=== PATIENT | male | born 1960 | race American Indian/Alaskan Native ===

== ENCOUNTER 2017-04-23 10:25 | Day surgery (SDC) | payer MEDICAID ==
[2017-04-23] MEDS ORDERED: NACL 0.9% 1000 ML 1,000 ML IV SCH (12:00)
[2017-04-23] MEDS ORDERED: WATER FOR IRRIG STERILE IR ONE (12:46)
[2017-04-23] MEDS ORDERED: DIPRIVAN 10 MG/ML IV ONE (12:49)
--- NOTE | 2017-04-23 12:59 | Anesthesia Consultation ---
Anesthesia Consult and Med Hx Date of service: 04/23/17 - Airway Anesthetic Teeth Evaluation: Poor (lots broken), Edentulous (upper) ROM Head & Neck: Adequate Mental/Hyoid Distance: Adequate Mallampati Class: Class II Intubation Access Assessment: Probably Good - Pulmonary Exam CTA: Yes - Cardiac Exam Cardiac Exam: RRR - Pre-Operative Health Status ASA Pre-Surgery Classification: ASA3 Proposed Anesthetic Plan: MAC - Pulmonary Hx Smoking: Yes (09/03 PPD) - Cardiovascular System Hx Hypertension: Yes - Central Nervous System Hx Seizures: Yes - Gastrointestinal Hx Gastroesophageal Reflux Disease: Yes (on meds)
--- NOTE | 2017-04-23 13:00 | Anesthesia Day of Surgery ---
Anesthesia Day of Surgery - Day of Surgery Patient Examined: Yes Patient H&P Reviewed: Yes Patient is NPO: Yes
[2017-04-23] MEDS ORDERED: WATER FOR IRRIG STERILE ONE (13:09)
[2017-04-23] MEDS ORDERED: INFANTS' GAS RELIEF PO ONE (13:09)
--- NOTE | 2017-04-23 13:29 | Post Anesthesia Evaluation ---
- Post Anesthesia Evaluation Patient Participated: Yes Airway Patent: Yes Stable Respiratory Function: Yes Nausea/Vomiting: No Temp > 96.8F: Yes Pain Manageable: Yes Adequeate Hydration: Yes Anesthesia Complications: No
[2017-04-23 13:44] VITALS: BP 117/84
--- NOTE | 2017-04-28 13:30 | Operative Report ---
Operative Report Operative Report: Date of procedure: 04/23/2017 Procedure: Colonoscopy Attending physician: Clay Kirkland MD Body Specialist: Clay Kirkland MD Indication: Patient is a 56-year-old male who presents with a past history of colon polyps. A colonoscopy is done to assess patient so that treatment may be directed based on the findings. Consent: Informed consent was obtained after advising the patient and family regarding nature of this procedure, its indications, potential benefits as well as possible complications including but not limited to bleeding perforation and adverse reaction to medication, infection as well as other cardiopulmonary complications. An informed written and verbal consent was then obtained after due opportunity was provided for questions and answers. Monitoring: Patient was monitored continuously with pulse oximetry and electrocardiographic recordings as well as blood pressure recordings. Vital signs remained stable throughout this procedure with no untoward events. Preoperative assessment: Patient was assessed immediately prior to this procedure for capacity to tolerate monitored anesthesia care and moderate sedation as well as general anesthesia. Patient's ASA classification is 2, Mallampati class is 2, Hyomental distance is 3. Instrument: [employer] video colonoscope Medications: Propofol given intravenously in divided doses. For details please refer to anesthesia records. Description of procedure: Patient was placed in the left lateral decubitus position after achieving sedation, a digital rectal examination was performed following which the colonoscope was introduced into the anal verge and advanced to the cecum which was identified by the cecal valve, the appendiceal orifice, as well as by the cecal strap and direct transillumination. The colonoscope was subsequently withdrawn with careful inspection of all mucosal surfaces. Patient tolerated this procedure well and was subsequently taken to the recovery room. The following findings were noted. Findings: Patient has substantial retained stool in various sections of the colon. There were no gross abnormalities seen however. On the retroflex view at the anal verge, patient had internal hemorrhoids. Impression: Retained stool. Internal hemorrhoids. Plan: High-fiber diet. Consider repeat colonoscopy in 1-2 years given the suboptimal preparation.
== END 2017-04-23 10:26 | disposition home or self-care (01) ==
LOC: GIO 10:25
PROVIDERS: ATTEND Internal Medicine Gastroenterology
DX: Z09 Encounter for follow-up examination after completed treatment for conditions other than malignant neoplasm (principal); K64.8 Other hemorrhoids; F32.9 Major depressive disorder, single episode, unspecified; I10 Essential (primary) hypertension; K21.9 Gastro-esophageal reflux disease without esophagitis; F17.210 Nicotine dependence, cigarettes, uncomplicated; Z72.89 Other problems related to lifestyle; Z88.8 Allergy status to other drugs, medicaments and biological substances; Z87.19 Personal history of other diseases of the digestive system; Z79.899 Other long term (current) drug therapy; Z80.0 Family history of malignant neoplasm of digestive organs; Z83.79 Family history of other diseases of the digestive system
CPT/HCPCS: 45378; J2704; J7030

== ENCOUNTER 2018-05-18 00:07 | Emergency (ER) | payer MEDICAID ==
--- NOTE | 2018-05-18 03:47 | Emergency Department Report ---
ED ENT HPI - General Chief complaint: Earache Stated complaint: EARRING STUCK IN THE EAR Source: patient Mode of arrival: Ambulatory Limitations: No Limitations - History of Present Illness Initial comments: Patient is a 57-year-old -[place] male presents with foreign body right ear states that earring fell into attempted to remove at home states it only went deeper there is no tinnitus or vertigo raffy bleeding MD complaint: ear pain Onset/Timin -: days(s) Location: R ear Severity: moderate Severity scale (0 -10): 3 Quality: aching Consistency: intermittent Improves with: none Worsens with: none Context- Ear: other (foreign body right ear ) Associated Symptoms: denies: discharge from ear - Related Data Home Medications Medication Instructions Recorded Confirmed Last Taken Folic Acid 1 mg PO DAILY 04/23/17 04/23/17 04/22/17 Latuda 1 tab PO DAILY 04/23/17 04/23/17 04/22/17 Losartan/Hydrochlorothiazide 12.5 mg PO DAILY 04/23/17 04/23/17 04/23/17 Simvastatin 20 mg PO DAILY 04/23/17 04/23/17 04/22/17 Xanax TAB 1 tab PO DAILY 04/23/17 04/23/17 04/22/17 amLODIPine 10 mg PO DAILY 04/23/17 04/23/17 04/23/17 Previous Rx's Medication Instructions Recorded Last Taken Type Allopurinol [Zyloprim] 100 mg PO QDAY #30 tablet 03/21/16 04/22/17 Rx Aspirin EC [Aspirin Enteric Coated 81 mg PO QDAY #30 tablet 03/21/16 04/22/17 Rx TAB] Divalproex Sodium [Divalproex 1,500 mg PO QHS #90 tab.er.24h 03/21/16 Unknown Rx Sodium ER] Ferrous Sulfate [Feosol 325 MG tab] 325 mg PO BID #60 tablet 03/21/16 Unknown Rx Gabapentin [Neurontin] 300 mg PO BID #60 capsule 03/21/16 Unknown Rx Lisinopril [Zestril TAB] 20 mg PO QDAY #30 tablet 03/21/16 Unknown Rx Metoprolol [Lopressor TAB] 25 mg PO BID #60 tablet 03/21/16 04/22/17 Rx Mirtazapine 30 mg PO DAILY #30 tablet 03/21/16 04/15/17 Rx Oxycodone HCl/Acetaminophen 1 each PO Q6HR PRN #20 tablet 03/21/16 04/22/17 Rx [Percocet 10/325 mg] Quetiapine Fumarate [QUEtiapine 400 mg PO QDAY #30 tablet 03/21/16 04/22/17 Rx Fumarate] Sennosides/Docusate Sodium 1 each PO BID #60 tablet 03/21/16 Unknown Rx [Doc-Q-Lax Tablet] buPROPion SR [Wellbutrin SR] 150 mg PO QAM #30 tablet 03/21/16 04/22/17 Rx predniSONE [Deltasone] 40 mg PO QDAY #10 tablet 03/21/16 Unknown Rx Neomy/Polymyx B/Hc (Otic) Soln 4 drops OD TID 7 Days #1 bottle 05/18/18 Unknown Rx [Cortisporin (Otic) Soln] Allergies Allergy/AdvReac Type Severity Reaction Status Date / Time codeine Allergy Unknown Verified 01/08/14 15:07 naproxen [From Naprosyn] Allergy Unknown Verified 01/08/14 15:07 ED Dental HPI - General Chief complaint: Earache Stated complaint: EARRING STUCK IN THE EAR Source: patient Mode of arrival: Ambulatory Limitations: No Limitations - Related Data Home Medications Medication Instructions Recorded Confirmed Last Taken Folic Acid 1 mg PO DAILY 04/23/17 04/23/17 04/22/17 Latuda 1 tab PO DAILY 04/23/17 04/23/17 04/22/17 Losartan/Hydrochlorothiazide 12.5 mg PO DAILY 04/23/17 04/23/17 04/23/17 Simvastatin 20 mg PO DAILY 04/23/17 04/23/17 04/22/17 Xanax TAB 1 tab PO DAILY 04/23/17 04/23/17 04/22/17 amLODIPine 10 mg PO DAILY 04/23/17 04/23/17 04/23/17 Previous Rx's Medication Instructions Recorded Last Taken Type Allopurinol [Zyloprim] 100 mg PO QDAY #30 tablet 03/21/16 04/22/17 Rx Aspirin EC [Aspirin Enteric Coated 81 mg PO QDAY #30 tablet 03/21/16 04/22/17 Rx TAB] Divalproex Sodium [Divalproex 1,500 mg PO QHS #90 tab.er.24h 03/21/16 Unknown Rx Sodium ER] Ferrous Sulfate [Feosol 325 MG tab] 325 mg PO BID #60 tablet 03/21/16 Unknown Rx Gabapentin [Neurontin] 300 mg PO BID #60 capsule 03/21/16 Unknown Rx Lisinopril [Zestril TAB] 20 mg PO QDAY #30 tablet 03/21/16 Unknown Rx Metoprolol [Lopressor TAB] 25 mg PO BID #60 tablet 03/21/16 04/22/17 Rx Mirtazapine 30 mg PO DAILY #30 tablet 03/21/16 04/15/17 Rx Oxycodone HCl/Acetaminophen 1 each PO Q6HR PRN #20 tablet 03/21/16 04/22/17 Rx [Percocet 10/325 mg] Quetiapine Fumarate [QUEtiapine 400 mg PO QDAY #30 tablet 03/21/16 04/22/17 Rx Fumarate] Sennosides/Docusate Sodium 1 each PO BID #60 tablet 03/21/16 Unknown Rx [Doc-Q-Lax Tablet] buPROPion SR [Wellbutrin SR] 150 mg PO QAM #30 tablet 03/21/16 04/22/17 Rx predniSONE [Deltasone] 40 mg PO QDAY #10 tablet 03/21/16 Unknown Rx Neomy/Polymyx B/Hc (Otic) Soln 4 drops OD TID 7 Days #1 bottle 05/18/18 Unknown Rx [Cortisporin (Otic) Soln] Allergies Allergy/AdvReac Type Severity Reaction Status Date / Time codeine Allergy Unknown Verified 01/08/14 15:07 naproxen [From Naprosyn] Allergy Unknown Verified 01/08/14 15:07 ED Review of Systems ROS: Stated complaint: EARRING STUCK IN THE EAR Other details as noted in HPI Constitutional: denies: chills, fever Eyes: denies: eye pain, eye discharge, vision change ENT: ear pain Respiratory: denies: cough, shortness of breath, wheezing Cardiovascular: denies: chest pain, palpitations Endocrine: no symptoms reported Gastrointestinal: denies: abdominal pain, nausea, diarrhea Genitourinary: denies: urgency, dysuria Musculoskeletal: denies: back pain, joint swelling, arthralgia Skin: denies: rash, lesions Neurological: as per HPI Psychiatric: denies: anxiety, depression Hematological/Lymphatic: denies: easy bleeding, easy bruising ED Past Medical Hx - Past Medical History Previous Medical History?: Yes Hx Hypertension: Yes Hx GERD: Yes Hx Arthritis: Yes (RA) Hx Seizures: Yes Hx Psychiatric Treatment: Yes (depression, bipolar) Additional medical history: Gout - Social History Smoking Status: Current Every Day Smoker - Medications Home Medications: Home Medications Medication Instructions Recorded Confirmed Last Taken Type Allopurinol [Zyloprim] 100 mg PO QDAY #30 tablet 03/21/16 04/23/17 04/22/17 Rx Aspirin EC [Aspirin Enteric Coated 81 mg PO QDAY #30 tablet 03/21/16 04/23/17 Rx TAB] Divalproex Sodium [Divalproex 1,500 mg PO QHS #90 tab.er.24h 03/21/16 04/23/17 Unknown Rx Sodium ER] Ferrous Sulfate [Feosol 325 MG tab] 325 mg PO BID #60 tablet 03/21/16 04/23/17 Unknown Rx Gabapentin [Neurontin] 300 mg PO BID #60 capsule 03/21/16 04/23/17 Unknown Rx Lisinopril [Zestril TAB] 20 mg PO QDAY #30 tablet 03/21/16 04/23/17 Unknown Rx Metoprolol [Lopressor TAB] 25 mg PO BID #60 tablet 03/21/16 04/23/17 04/22/17 Rx Mirtazapine 30 mg PO DAILY #30 tablet 03/21/16 04/23/17 04/15/17 Rx Oxycodone HCl/Acetaminophen 1 each PO Q6HR PRN #20 tablet 03/21/16 04/23/17 Rx [Percocet 10/325 mg] Quetiapine Fumarate [QUEtiapine 400 mg PO QDAY #30 tablet 03/21/16 04/23/17 Rx Fumarate] Sennosides/Docusate Sodium 1 each PO BID #60 tablet 03/21/16 04/23/17 Unknown Rx [Doc-Q-Lax Tablet] buPROPion SR [Wellbutrin SR] 150 mg PO QAM #30 tablet 03/21/16 04/23/17 Rx predniSONE [Deltasone] 40 mg PO QDAY #10 tablet 03/21/16 04/23/17 Unknown Rx Folic Acid 1 mg PO DAILY 04/23/17 04/23/17 04/22/17 History Latuda 1 tab PO DAILY 04/23/17 04/23/17 04/22/17 History Losartan/Hydrochlorothiazide 12.5 mg PO DAILY 04/23/17 04/23/17 04/23/17 History Simvastatin 20 mg PO DAILY 04/23/17 04/23/17 04/22/17 History Xanax TAB 1 tab PO DAILY 04/23/17 04/23/17 04/22/17 History amLODIPine 10 mg PO DAILY 04/23/17 04/23/17 04/23/17 History Neomy/Polymyx B/Hc (Otic) Soln 4 drops OD TID 7 Days #1 bottle 05/18/18 Unknown Rx [Cortisporin (Otic) Soln] ED Physical Exam - General Limitations: No Limitations General appearance: alert, in no apparent distress - Head Head exam: Present: atraumatic, normocephalic - Eye Eye exam: Present: normal appearance, PERRL, EOMI Pupils: Present: normal accommodation - ENT ENT exam: Present: mucous membranes moist - Expanded ENT Exam Expanded TM/Canal exam: Erythema: Right TM, Foreign Body: Right TM Mouth exam: Present: normal external inspection Teeth exam: Present: normal inspection Throat exam: Positive: normal inspection - Neck Neck exam: Present: normal inspection, full ROM. Absent: tenderness, meningismus, lymphadenopathy, thyromegaly - Respiratory Respiratory exam: Present: normal lung sounds bilaterally, chest wall tenderness. Absent: respiratory distress - Cardiovascular Cardiovascular Exam: Present: regular rate, normal rhythm, normal heart sounds. Absent: systolic murmur, diastolic murmur, rubs, gallop - GI/Abdominal GI/Abdominal exam: Present: soft, normal bowel sounds. Absent: bruit, hernia - Rectal Rectal exam: Present: deferred - Extremities Exam Extremities exam: Present: normal inspection - Back Exam Back exam: Present: normal inspection - Neurological Exam Neurological exam: Present: alert, oriented X3, CN II-XII intact, normal gait - Psychiatric Psychiatric exam: Present: normal affect, normal mood - Skin Skin exam: Present: warm, dry, intact, normal color. Absent: rash ED Course Vital Signs 05/18/18 03:21 Temperature 98.3 F Pulse Rate 108 H Respiratory 20 Rate Blood Pressure 110/71 O2 Sat by Pulse 97 Oximetry ED Medical Decision Making - Medical Decision Making This is foreign body ear was gently removed unable to remove ear ringing plan follow up with ENT in 1-2 days for foreign body right ear, pt verbalzes agreement and understanding of same. Critical care attestation.: If time is entered above; I have spent that time in minutes in the direct care of this critically ill patient, excluding procedure time. ED Disposition Clinical Impression: Foreign body in left ear Qualifiers: Encounter type: initial encounter Qualified Code(s): T16.2XXA - Foreign body in left ear, initial encounter Disposition: TO HOME OR SELFCARE Is pt being admited?: No Does the pt Need Aspirin: No Condition: Stable Instructions: Ear Foreign Body (ED) Prescriptions: Neomy/Polymyx B/Hc (Otic) Soln [Cortisporin (Otic) Soln] 4 drops OD TID 7 Days # 1 bottle Referrals: JAYNE LUBIN MD [Staff Physician] - 3-5 Days Forms: Work/School Release Form(ED) Time of Disposition: 04:02
[2018-05-18 04:26] VITALS: BP 118/67
== END 2018-05-18 04:26 | disposition home or self-care (01) ==
LOC: ED 00:07
DX: T16.2XXA Foreign body in left ear, initial encounter (principal); I10 Essential (primary) hypertension; K21.9 Gastro-esophageal reflux disease without esophagitis; M13.88 Other specified arthritis, other site; F31.9 Bipolar disorder, unspecified; F32.9 Major depressive disorder, single episode, unspecified; M10.9 Gout, unspecified; F17.200 Nicotine dependence, unspecified, uncomplicated; Z79.899 Other long term (current) drug therapy; Z88.4 Allergy status to anesthetic agent; X58.XXXA Exposure to other specified factors, initial encounter; Y93.89 Activity, other specified; Y99.8 Other external cause status; Y92.89 Other specified places as the place of occurrence of the external cause
CPT/HCPCS: 99282